=== PATIENT | female | born 1980 | race African-American/Black ===

== ENCOUNTER 2019-10-16 04:05 | Emergency (ER) | payer SELFPAY ==
[~2019-10-16] VITALS: Ht 157.5 cm; Wt 54.5 kg
[~2019-10-16 04:05] MED LIST: ALBU8HFA IH
[2019-10-16] MEDS ORDERED: ACETAMINOPHEN 500 MG TABLET PO ONE (06:00)
[2019-10-16 07:49] VITALS: BP 138/70
== END 2019-10-16 07:55 | disposition home or self-care (01) ==
LOC: EMS 04:05
DX: R45.1 Restlessness and agitation (principal); M54.6 Pain in thoracic spine; J45.909 Unspecified asthma, uncomplicated; F17.210 Nicotine dependence, cigarettes, uncomplicated; Z79.899 Other long term (current) drug therapy; V49.9XXA Car occupant (driver) (passenger) injured in unspecified traffic accident, initial encounter; Y93.89 Activity, other specified; Y92.488 Other paved roadways as the place of occurrence of the external cause; Y99.8 Other external cause status
CPT/HCPCS: 70450; 71250; 72125; 72192; 74150

== ENCOUNTER 2021-04-23 18:18 | Emergency (ER) | payer OTHER ==
[~2021-04-23] VITALS: Ht 160 cm; Wt 56.8 kg
[2021-04-23 19:59] VITALS: BP 124/75
[2021-04-23] MEDS ORDERED: LIDOCAINE 1% 10 ML VIAL SQ ONE (20:30)
[2021-04-23] MEDS ORDERED: PERTUSS(ACELL),DIPH,TET VAC/PF 0.5 ML SYRINGE IM. ONE (20:30)
[2021-04-23] MEDS ORDERED: BACITRACIN 0.9 GM PACKET OINTMENT TP ONE (20:30)
[2021-04-23] MEDS ORDERED: IBUPROFEN 600 MG TABLET PO ONE (20:30)
== END 2021-04-23 21:16 | disposition home or self-care (01) ==
LOC: EMS 18:21
DX: S71.112A Laceration without foreign body, left thigh, initial encounter (principal); J45.909 Unspecified asthma, uncomplicated; F17.210 Nicotine dependence, cigarettes, uncomplicated; F12.90 Cannabis use, unspecified, uncomplicated; W26.0XXA Contact with knife, initial encounter; Y93.89 Activity, other specified; Y92.89 Other specified places as the place of occurrence of the external cause; Y99.8 Other external cause status
CPT/HCPCS: 12001; 90471; 90715; 99283; J3490

== ENCOUNTER 2022-12-03 19:46 | Emergency (ER) | payer OTHER ==
[~2022-12-03] VITALS: Ht 162.6 cm; Wt 59.0 kg
[2022-12-03] MEDS ORDERED: SODIUM CHLORIDE 0.9% 1,000 ML IV ONE (22:30)
[2022-12-03 23:08] LABS: ALBUMIN 2.7 g/dL (3.4-5.0); BILIRUBIN,TOTAL 0.2 mg/dL (0.1-1.0); CALCIUM, TOTAL 8.2 mg/dL (8.8-10.5); CREATININE 1.23 mg/dL (0.60-1.30); TOTAL PROTEIN, SERUM 6.3 g/dL (6.4-8.2)
[2022-12-03 23:10] LABS: POTASSIUM 2.9 mmol/L (3.5-5.1)
[2022-12-03 23:18] LABS: HEMATOCRIT 36.6 % (36-46); HEMOGLOBIN 12.3 g/dL (12.0-16.0); MEAN CORPUSCULAR HGB CONC 33.6 G/dL (31.0-37.0); MEAN CORPUSCULAR VOLUME 86 fL (80-100); PLATELET COUNT (AUTO) 190 K/uL (150-450); RED BLOOD CELL COUNT(AUTO) 4.23 MIL/uL (4.00-5.20)
[2022-12-03 23:47] LABS: BAND NEUTROPHILS % (MANUAL) 13 % (0-5); EOSINOPHILS % (MANUAL) 1 % (1-6); LYMPHOCYTES % (MANUAL) 22 % (22-44); MONOCYTES % (MANUAL) 10 % (2-9); REACTIVE LYMPHOCYTES 2 % (0-0); SEGMENTED NEUTROPHILS % 52 % (40-70)
[2022-12-04 02:11] VITALS: BP 136/66
[2022-12-04] MEDS ORDERED: POTASSIUM CHLORIDE 20 MEQ ER TABLET PO ONE (02:15)
== END 2022-12-04 03:11 | disposition home or self-care (01) ==
LOC: EMS 19:48
DX: R10.32 Left lower quadrant pain (principal); K52.9 Noninfective gastroenteritis and colitis, unspecified; E87.6 Hypokalemia; J45.909 Unspecified asthma, uncomplicated; F17.210 Nicotine dependence, cigarettes, uncomplicated; F12.90 Cannabis use, unspecified, uncomplicated
CPT/HCPCS: 99285; 96360; 80053; 83690; 84703; 85025; 93005; 74176; J7030; 36415-L1; 36415-TC

== ENCOUNTER 2025-03-20 15:44 | Emergency (ER) | payer OTHER ==
[~2025-03-20] VITALS: Ht 160 cm; Wt 47.7 kg
[~2025-03-20 15:44] MED LIST changes: +ALBU18HF12 IH; -ALBU8HFA IH
[2025-03-20 15:58] VITALS: BP 136/63; PULSE 60; RESP 16; O2SAT 98
== END 2025-03-20 16:21 ==
LOC: EMS 15:44
DX: F41.0 Panic disorder [episodic paroxysmal anxiety] (principal); J45.909 Unspecified asthma, uncomplicated; F12.90 Cannabis use, unspecified, uncomplicated; F17.210 Nicotine dependence, cigarettes, uncomplicated; Z79.899 Other long term (current) drug therapy
CPT/HCPCS: 99283; Z7502